=== PATIENT | female | born 1950 | race Caucasian/White ===

== ENCOUNTER 2018-10-05 14:29 | Outpatient (CLI) | payer MEDICARE, BC | END 2018-10-05 23:59 | disposition home or self-care (01) | LOC: VAS 14:29 | PROVIDERS: ATTEND Specialist | DX: R60.0 Localized edema (principal) | CPT/HCPCS: 93971 ==

== ENCOUNTER 2018-12-04 14:00 | Observation (INO) | payer MEDICARE, BC ==
[~2018-12-04] VITALS: Ht 167.6 cm; Wt 79.5 kg
[2018-12-04] MEDS ORDERED: aspirin 81mg tab.chew PO ONE (14:10)
[2018-12-04 14:45] LABS: BASOPHILS % (AUTO) 0.5 % (0-1); EOSINOPHILS # (AUTO) 0.1 X10'3 (0-0.9); EOSINOPHILS % (AUTO) 0.7 % (0-6); HEMATOCRIT 38.7 % (35.0-45.0); HEMOGLOBIN 13.3 g/dl (12.0-16.0); LYMPHOCYTES # (AUTO) 1.8 X10'3 (1.1-4.8); LYMPHOCYTES % (AUTO) 21.9 % (21-51); MEAN CORPUSCULAR HEMOGLOBIN 30.4 PG (27.0-31.0); MEAN CORPUSCULAR HGB CONC 34.3 g/dL (33.0-36.5); MEAN CORPUSCULAR VOLUME 88.6 FL (78-98); MEAN PLATELET VOLUME 7.9 FL (7.4-10.4); MONOCYTES # (AUTO) 0.6 X10'3 (0-0.9); MONOCYTES % (AUTO) 7.7 % (2-12); NEUTROPHILS # (AUTO) 5.8 X10'3 (1.8-7.7); NEUTROPHILS % (AUTO) 69.2 % (42-75); PLATELET COUNT 307 X10'3 (140-440); RED BLOOD COUNT 4.37 X10'6 (4.20-5.60); RED CELL DISTRIBUTION WIDTH 13.8 % (11.5-14.5); WHITE BLOOD COUNT 8.3 X10'3 (4.5-11.0)
[2018-12-04 14:50] LABS: ALANINE AMINOTRANSFERASE 48 U/L (12-78); ALBUMIN 3.7 G/DL (3.4-5.0); ALKALINE PHOSPHATASE 74 IU/L (46-116); ANION GAP 7 (8-16); ASPARTATE AMINO TRANSFERASE 54 U/L (10-37); BILIRUBIN,TOTAL 0.4 MG/DL (0.1-1.0); BLOOD UREA NITROGEN 22 MG/DL (7-18); BUN/CREATININE RATIO 25.3 (6.6-38.0); CALCIUM 9.4 MG/DL (8.5-10.1); CHLORIDE 107 MMOL/L (99-107); CREATININE 0.87 MG/DL (0.40-0.90); GLUCOSE 102 MG/DL (70-104); POTASSIUM 4.1 MMOL/L (3.5-5.1); SODIUM 142 MMOL/L (135-145); TOTAL CARBON DIOXIDE 27.8 MMOL/L (24-32); TOTAL PROTEIN 7.3 G/DL (6.4-8.2); eGFR 65 ML/MIN
[2018-12-04 14:53] LABS: PARTIAL THROMBOPLASTIN TIME 26 SECONDS (22-32)
[2018-12-04 14:59] LABS: MAGNESIUM 2.1 MG/DL (1.5-2.4)
[2018-12-04] MEDS ORDERED: nitroGLYCERIN 1gm ointment UD TP ONE (15:05)
--- NOTE | 2018-12-04 16:21 | NUR ---
SPOKE TO [facility] REGARDING NITRO PASTE; PATIENT DENIES CHEST PAIN: OK TO HOLD AND NON ADMIN NITRO PASTE PRIMARY RN DID NOT TO GIVE NITRO PASTE
--- NOTE | 2018-12-04 16:27 | NUR ---
PATIENT DISCUSSING BOTH HER PAST MEDICAL HISTORY: INCLUDING HX OF AFIB, MITRAL VALVE REPAIR WITH UNSUCCESSFUL MAZE PORCEEDURE. THEN WENT TO [facility] ICU SPECIALIST AND WAS PLACED ON "TIKASON" AND WENT BACK INTO [facility]. PATIENT HAS ALOT OF STRESS IN HER LIFE: HER IS SOMEWHAT SICKLY.
[2018-12-04] MEDS ORDERED: LORazepam 0.5 MG tablet PO PRN (16:45)
[2018-12-04] MEDS ORDERED: NO HOME MEDS (17:05)
[2018-12-04] MEDS ORDERED: potassium Cl 20 mEq SR tablet PO PRN ×2 (17:30)
[2018-12-04] MEDS ORDERED: magnesium hydroxide 30ml (MOM) UD suspension PO PRN (17:30)
[2018-12-04] MEDS ORDERED: acetaminophen 325mg tablet PO PRN ×2 (17:30)
[2018-12-04] MEDS ORDERED: potassium CL 10mEq/100ml bag 100 ML IV PRN ×2 (17:30)
[2018-12-04] MEDS ORDERED: HYDROcodone/acetaminophen 5mg/325mg tablet PO PRN (17:30)
[2018-12-04] MEDS: K and/or MAG REPLACEMENT MC SCH (17:30)
[2018-12-04] MEDS ORDERED: HYDROcodone/acetaminophen 10/325mg tab PO PRN (17:30)
[2018-12-04] MEDS ORDERED: aminophylline 250mg/10ml inj. IV PRN (17:30)
[2018-12-04] MEDS ORDERED: morphine 2 MG/ML inj. syringe IV PRN ×2 (17:30)
[2018-12-04] MEDS ORDERED: ondansetron/PF 4mg/2ml inj IV PRN (17:30)
[2018-12-04] MEDS ORDERED: mag hydrox/Alum hydrox/simeth 30ml oral suspension PO PRN (17:30)
[2018-12-04] MEDS ORDERED: diphenhydrAMINE 25mg capsule PO PRN (17:30)
[2018-12-04] MEDS ORDERED: magnesium Cl slow-release 64mg tablet PO PRN (17:30)
[2018-12-04] MEDS ORDERED: metoprolol tartrate 1mg/ml inj IV PRN (17:30)
[2018-12-04] MEDS ORDERED: magnesium 4gm in 100ml NS 100 ML IV PRN (17:30)
[2018-12-04] MEDS ORDERED: magnesium 2GM in 50ml NS 50 ML IV PRN (17:30)
[2018-12-04] MEDS ORDERED: regadenoson 0.4mg/5ml syringe IV ONE ×2 (17:30→18:05)
[2018-12-04] MEDS ORDERED: nitroGLYCERIN 0.4mg SUBLingual tab SL PRN (17:30)
[2018-12-04] MEDS: normal saline 1000ml 1,000 ML IV SCH ×2 (17:55→20:21)
[2018-12-04 18:06] LABS: HEMOGLOBIN A1C 5.4 % (4.5-6.2)
--- NOTE | 2018-12-04 18:25 | NUR ---
DR CONLEY AT BEDSIDE EVALAUTING PATIENT.
[2018-12-04] MEDS ORDERED: iohexol 350MG/ML 100ml bottle IV ONE (18:48)
[2018-12-04] MEDS: heparin, porcine 5000 units/ml vial SQ SCH (20:00)
[2018-12-04] MEDS: carVEDilol 3.125mg tablet PO SCH (20:19)
[2018-12-04 21:00] VITALS: BP 124/69
--- NOTE | 2018-12-04 21:00 | NUR ---
pt arrived via [place] and ambulated to bed. A&Ox4, oriented to unit. She stated she had full cardiac workup 3 months ago before knee surgery. no chest pain. She stated the Lexiscan was canceled for tomorrow. tele monitor on. no signs of distress noted
[2018-12-04] MEDS ORDERED: pantoprazole 40 MG vial IV ONE (22:30)
--- NOTE | 2018-12-04 22:30 | NUR ---
pt educated on new order of protonix and refused to want this medication
[2018-12-04] MEDS ORDERED: regadenoson 0.4mg/5ml syringe IV PRN (22:35)
[2018-12-05 02:00] VITALS: BP 128/67
[2018-12-05 02:37] LABS: BASOPHILS # (AUTO) 0.1 X10'3 (0-0.2); EOSINOPHILS # (AUTO) 0.2 X10'3 (0-0.9); HEMATOCRIT 37.6 % (35.0-45.0); LYMPHOCYTES % (AUTO) 32.5 % (21-51); MEAN CORPUSCULAR HEMOGLOBIN 30.5 PG (27.0-31.0); MEAN CORPUSCULAR HGB CONC 34.5 g/dL (33.0-36.5); MEAN CORPUSCULAR VOLUME 88.5 FL (78-98); MEAN PLATELET VOLUME 7.8 FL (7.4-10.4); MONOCYTES # (AUTO) 0.6 X10'3 (0-0.9); MONOCYTES % (AUTO) 10.5 % (2-12); NEUTROPHILS # (AUTO) 3.3 X10'3 (1.8-7.7); PLATELET COUNT 277 X10'3 (140-440); RED BLOOD COUNT 4.25 X10'6 (4.20-5.60); RED CELL DISTRIBUTION WIDTH 14.4 % (11.5-14.5); WHITE BLOOD COUNT 6.2 X10'3 (4.5-11.0)
[2018-12-05 02:50] LABS: ALANINE AMINOTRANSFERASE 42 U/L (12-78); ALBUMIN 3.2 G/DL (3.4-5.0); ALKALINE PHOSPHATASE 65 IU/L (46-116); ANION GAP 7 (8-16); ASPARTATE AMINO TRANSFERASE 27 U/L (10-37); BILIRUBIN,TOTAL 0.2 MG/DL (0.1-1.0); BLOOD UREA NITROGEN 20 MG/DL (7-18); CALCIUM 9.3 MG/DL (8.5-10.1); CHLORIDE 110 MMOL/L (99-107); CREATININE 0.77 MG/DL (0.40-0.90); GLUCOSE 104 MG/DL (70-104); POTASSIUM 3.9 MMOL/L (3.5-5.1); SODIUM 144 MMOL/L (135-145); TOTAL CARBON DIOXIDE 26.9 MMOL/L (24-32); TOTAL PROTEIN 6.5 G/DL (6.4-8.2); eGFR 74 ML/MIN
[2018-12-05 03:00] LABS: CHOL/HDL RATIO 4.1 (0.00-4.99); CHOLESTEROL 192 MG/DL (0-200); HDL CHOLESTEROL 47 MG/DL (35-60); LDL CHOLESTEROL 124 MG/DL (50-100); MAGNESIUM 1.9 MG/DL (1.5-2.4); PHOSPHORUS 4.2 MG/DL (2.3-4.5); TRIGLYCERIDES 145 MG/DL (20-135)
[2018-12-05 06:00] VITALS: BP 114/61
[2018-12-05] MEDS: normal saline 1000ml 1,000 ML IV SCH (06:13)
--- NOTE | 2018-12-05 06:22 | NUR ---
Patient in room PCU 3016. I have received report from NOE Carter and NOE Maier and had the opportunity to ask questions and assume patient care. Pt is awake and alert. In good spirits. Pt wants to walk a lap around the unit, and will wait until after shift change. Will continue to monitor and assess.
--- NOTE | 2018-12-05 06:28 | NUR ---
Problems reprioritized. Patient report given, questions answered & plan of care reviewed with Lana RN.
--- NOTE | 2018-12-05 06:30 | NUR ---
Problems reprioritized. Patient report given, questions answered & plan of care reviewed with Eddie rn.
--- NOTE | 2018-12-05 06:33 | NUR ---
Pt is currently walking laps around the unit. She is steady and stable on her feet. The pt is anxious to go home.
[2018-12-05] MEDS ORDERED: pantoprazole 40 MG vial IV SCH (08:00)
[2018-12-05] MEDS: heparin, porcine 5000 units/ml vial SQ SCH (08:00)
[2018-12-05] MEDS ORDERED: aspirin 81mg tablet.DR PO SCH (08:00)
[2018-12-05] MEDS: K and/or MAG REPLACEMENT MC SCH (08:00)
[2018-12-05] MEDS: carVEDilol 3.125mg tablet PO SCH (08:00)
[2018-12-05] MEDS ORDERED: regadenoson 0.4mg/5ml syringe IV PRN (08:00)
--- NOTE | 2018-12-05 09:14 | NUR ---
Sent to Dr Culp PAGER ID: [phone] MESSAGE: RE: Judith Maxwell [phone]. Per Reena, pt is in good health and can be discharged JOSE. -Lana [phone]
[2018-12-05] MEDS ORDERED: ASPI-1071 PO (10:32)
[2018-12-05] MEDS ORDERED: PANT40TA4 PO (10:32)
[2018-12-05] MEDS ORDERED: COR3.125T PO (10:32)
--- NOTE | 2018-12-05 10:50 | NUR ---
Pt states she will make her own f/u appt. She does not want the Rx filled as they are not needed - per pt.
--- NOTE | 2018-12-05 11:08 | NUR ---
Pt discharged. IV and tele monitor removed. All belongings sent home with pt. Left with son accompanied by staff to lobby. Left in private vehicle. No appt or Rx called in per pt request.
== END 2018-12-05 11:09 | disposition home or self-care (01) ==
LOC: ER 14:00 → ED HOLD 17:35 → PCU 3S 20:55
PROVIDERS: ADMIT Family Medicine; ATTEND Family Medicine
DX: R07.89 Other chest pain (principal); I34.1 Nonrheumatic mitral (valve) prolapse; I10 Essential (primary) hypertension; I25.10 Atherosclerotic heart disease of native coronary artery without angina pectoris; I48.0 Paroxysmal atrial fibrillation; K21.9 Gastro-esophageal reflux disease without esophagitis; Z98.51 Tubal ligation status; Z96.651 Presence of right artificial knee joint; Z98.49 Cataract extraction status, unspecified eye; Z87.440 Personal history of urinary (tract) infections; Z79.82 Long term (current) use of aspirin; Z79.899 Other long term (current) drug therapy; Z91.018 Allergy to other foods
CPT/HCPCS: 36415; 71045; 71275; 80053; 80061; 83036; 83735; 83880; 84100; 84443; 84484; 85025; 85379; 85610; 85730; 87081; 93005; 93306; 99284; C9113; G0378; J1644; J2785; J7030; Q9967

== ENCOUNTER 2021-05-07 05:57 | Emergency (ER) | payer MEDICARE, BC ==
[~2021-05-07] VITALS: Ht 167.6 cm; Wt 81.8 kg
[~2021-05-07 05:57] MED LIST: ASPI-1071 PO; COR3.125T PO; PANT40TA54 PO
--- NOTE | 2021-05-07 06:11 | NUR ---
PATIENT'S BOYFRIEND HAS ARRIVED AND IS AT BEDSIDE. HE IS RECOUNTING THE EVENTS OF THIS MORNING TO [facility]U. BOYFRIEND ASKED PATIENT WHAT HER NAME IS AND SHE IS UNABLE TO ANSWER.
--- NOTE | 2021-05-07 06:35 | NUR ---
Note zander in EDM - 05/07/21 at 0636 by ELIF Assumed care of pt. Found while in bedside report that pt's HeliOx tank was empty with a significant amount of medication remaining in nebulizer. RT paged.
--- NOTE | 2021-05-07 06:36 | NUR ---
Previous note charted on incorrect pt
[2021-05-07 07:24] LABS: BASOPHILS % (AUTO) 0.4 % (0-1); EOSINOPHILS % (AUTO) 0.2 % (0-6); HEMATOCRIT 38.9 % (35.0-45.0); HEMOGLOBIN 13.2 g/dl (12.0-16.0); LYMPHOCYTES # (AUTO) 0.8 X10'3 (1.1-4.8); LYMPHOCYTES % (AUTO) 11.4 % (21-51); MEAN CORPUSCULAR HEMOGLOBIN 30.5 PG (27.0-31.0); MEAN CORPUSCULAR HGB CONC 33.8 g/dL (33.0-36.5); MEAN PLATELET VOLUME 7.9 FL (7.4-10.4); MONOCYTES # (AUTO) 0.2 X10'3 (0-0.9); MONOCYTES % (AUTO) 3.4 % (2-12); NEUTROPHILS # (AUTO) 6.1 X10'3 (1.8-7.7); NEUTROPHILS % (AUTO) 84.6 % (42-75); PLATELET COUNT 342 X10'3 (140-440); RED BLOOD COUNT 4.32 X10'6 (4.20-5.60); RED CELL DISTRIBUTION WIDTH 13.8 % (11.5-14.5); WHITE BLOOD COUNT 7.2 X10'3 (4.5-11.0)
--- NOTE | 2021-05-07 07:35 | NUR ---
Attempted to get pt up to the restroom. Pt became hot, flushed, dizzy and acutely confused. Symptoms only present for a short time before resolving.
[2021-05-07 07:40] LABS: LACTIC SEPSIS 2.1 MMOL/L (0.4-2.0)
[2021-05-07 07:46] LABS: ALANINE AMINOTRANSFERASE 39 U/L (12-78); ALBUMIN 3.8 G/DL (3.4-5.0); ALBUMIN/GLOBULIN RATIO 1.1 (1.1-1.5); ALKALINE PHOSPHATASE 77 IU/L (46-116); ANION GAP 11 (8-16); ASPARTATE AMINO TRANSFERASE 26 U/L (10-37); BILIRUBIN,TOTAL 0.3 MG/DL (0.1-1.0); BLOOD UREA NITROGEN 29 MG/DL (7-18); BUN/CREATININE RATIO 37.7 (6.6-38.0); CALCIUM 8.7 MG/DL (8.5-10.1); CHLORIDE 106 MMOL/L (99-107); CREATININE 0.77 MG/DL (0.40-0.90); ETHANOL < 0.010 GM/DL (0.0-0.010); GLUCOSE 130 MG/DL (70-104); POTASSIUM 4.3 MMOL/L (3.5-5.1); SODIUM 142 MMOL/L (135-145); TOTAL CARBON DIOXIDE 24.6 MMOL/L (24-32); TOTAL PROTEIN 7.4 G/DL (6.4-8.2); eGFR 74 ML/MIN
[2021-05-07 08:09] LABS: CLARITY,URINE CLEAR (Clear); COLOR,URINE YELLOW (Yellow); GLUCOSE, URINE NEGATIVE (Neg); KETONES,URINE NEGATIVE (Neg); LEUKOCYTE ESTERASE ,URINE NEGATIVE (Neg); NITRITES, URINE POSITIVE (Neg); OCCULT BLOOD,URINE NEGATIVE (Neg); PH,URINE 5.5 (4.8-8.0); PROTEIN,URINE NEGATIVE (Neg); UROBILINOGEN,URINE 0.2 E.U/dL (0.2-1.0)
[2021-05-07 08:14] LABS: UA COLLECTION TYPE OTHER
[2021-05-07 08:16] LABS: RBC,URINE NONE SEEN /HPF (0-2)
[2021-05-07 08:17] LABS: BACTERIA,URINE 4+ /HPF (Neg); MUCUS STRANDS FEW /LPF (Neg); SQUAMOUS EPITHELIAL CELL,UR MANY /LPF (FEW)
[2021-05-07 08:22] VITALS: BP 144/77
[2021-05-07] MEDS ORDERED: CefTRIAXone 2gm/D5W 50ml BAG 50 ML IV ONE (08:35)
[2021-05-07] MEDS ORDERED: normal saline 1000ML IV soln IVB ONE (08:35)
[2021-05-07 08:46] LABS: URINE AMPHETAMINE SCREEN NEGATIVE (Neg); URINE BARBITUATE SCREEN NEGATIVE (Neg); URINE BENZODIAZEPINES SCREEN NEGATIVE (Neg); URINE CANNABINOID SCREEN NEGATIVE (Neg); URINE COCAINE SCREEN NEGATIVE (Neg); URINE METHADONE SCREEN NEGATIVE (Neg); URINE OPIATE SCREEN NEGATIVE (Neg); URINE PHENCYCLIDINE SCREEN NEGATIVE (Neg)
[2021-05-07] MEDS ORDERED: CEPH-585 PO (09:35)
== END 2021-05-07 09:52 | disposition home or self-care (01) ==
LOC: ER 05:57
DX: R56.9 Unspecified convulsions (principal); R41.0 Disorientation, unspecified; N39.0 Urinary tract infection, site not specified; I48.91 Unspecified atrial fibrillation; Z79.2 Long term (current) use of antibiotics; Z79.899 Other long term (current) drug therapy; Z95.5 Presence of coronary angioplasty implant and graft
CPT/HCPCS: 36415; 70450; 71045; 80053; 80305; 80320; 81001; 82140; 82948; 83605; 83735; 83880; 84484; 85025; 87040; 93005; 96374; 99285; J0696; J7030

== ENCOUNTER 2023-09-27 02:21 | Emergency (ER) | payer MEDICARE ==
[~2023-09-27] VITALS: Ht 167.6 cm; Wt 79.5 kg
[2023-09-27 02:38] LABS: BASOPHILS # (AUTO) 0.1 X10'3 (0-0.2); BASOPHILS % (AUTO) 0.9 % (0-1); EOSINOPHILS # (AUTO) 0.2 X10'3 (0-0.9); HEMATOCRIT 39.9 % (35.0-45.0); HEMOGLOBIN 13.7 g/dl (12.0-16.0); LYMPHOCYTES # (AUTO) 2.9 X10'3 (1.1-4.8); LYMPHOCYTES % (AUTO) 36.5 % (21-51); MEAN CORPUSCULAR HEMOGLOBIN 31.2 PG (27.0-31.0); MEAN CORPUSCULAR HGB CONC 34.3 g/dL (33.0-36.5); MEAN CORPUSCULAR VOLUME 90.9 FL (78-98); MEAN PLATELET VOLUME 7.8 FL (7.4-10.4); MONOCYTES # (AUTO) 0.9 X10'3 (0-0.9); MONOCYTES % (AUTO) 11.9 % (2-12); NEUTROPHILS # (AUTO) 3.8 X10'3 (1.8-7.7); NEUTROPHILS % (AUTO) 47.7 % (42-75); PLATELET COUNT 310 X10'3 (140-440); RED BLOOD COUNT 4.39 X10'6 (4.20-5.60); RED CELL DISTRIBUTION WIDTH 13.4 % (11.5-14.5); WHITE BLOOD COUNT 7.9 X10'3 (4.5-11.0)
[2023-09-27 03:01] LABS: ALBUMIN 3.3 G/DL (3.4-5.0); ANION GAP 6 (8-16); BLOOD UREA NITROGEN 21 MG/DL (7-18); BUN/CREATININE RATIO 22.6 (10.0-20.0); CALCIUM 9.1 MG/DL (8.5-10.1); CHLORIDE 107 MMOL/L (99-107); CREATININE 0.93 MG/DL (0.40-0.90); GLUCOSE 105 MG/DL (70-104); POTASSIUM 4.2 MMOL/L (3.5-5.1); PRO BRAIN NATRIURETIC PEPTIDE 218 PG/ML (0-125); SODIUM 140 MMOL/L (135-145); TOTAL CARBON DIOXIDE 27.2 MMOL/L (24-32); eCRCL 50 ML/MIN; eGFR 59 ML/MIN
[2023-09-27] MEDS: famotidine/PF 10 mg/ml inj IV ONE (04:22)
[2023-09-27 05:25] VITALS: BP 146/62; PULSE 58; RESP 16; TEMP 98.3; O2SAT 96
== END 2023-09-27 05:27 | disposition home or self-care (01) ==
LOC: ER 02:22
DX: R07.9 Chest pain, unspecified (principal); Z79.82 Long term (current) use of aspirin; Z79.899 Other long term (current) drug therapy; Z98.890 Other specified postprocedural states
CPT/HCPCS: 36415; 71045; 80048; 83880; 84484; 85025; 93005; 96374; 99285; J3490

== ENCOUNTER 2024-02-06 10:28 | Outpatient (CLI) | payer MEDICARE ==
[~2024-02-06 10:28] MED LIST changes: +CARV3.1232 PO; -COR3.125T PO
== END 2024-02-06 23:59 | disposition home or self-care (01) ==
LOC: VAS 10:28
PROVIDERS: ATTEND Physician Assistant
DX: I82.441 Acute embolism and thrombosis of right tibial vein (principal); I73.9 Peripheral vascular disease, unspecified
CPT/HCPCS: 93926; 93971

== ENCOUNTER 2025-02-05 06:11 | Day surgery (SDC) | payer MEDICARE, BC ==
[2025-02-04 11:16] LABS: MEAN PLATELET VOLUME 7.7 FL (7.4-10.4); RED CELL DISTRIBUTION WIDTH 13.7 % (11.5-14.5)
[2025-02-04 11:24] LABS: APTT 26 SECONDS (22-32); CREATININE 0.79 MG/DL (0.40-0.90); INR 1.0 INR; TOTAL CARBON DIOXIDE 28.9 MMOL/L (24-32); eGFR 71 ML/MIN
[2025-02-05] VITALS (11 sets, daily range): BP systolic 119–151; BP diastolic 58–75; PULSE 50–58; RESP 12–15; TEMP 98.2; O2SAT 94–98
[~2025-02-05] VITALS: Ht 167.6 cm; Wt 78.9 kg
[~2025-02-05 06:11] MED LIST changes: -CARV3.1232 PO; +COR3.125T PO
--- NOTE | 2025-02-05 06:47 | ELECTROCARDIOGRAPH REPORT ---
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 Kiarra Smith Measurements Intervals Nixa Rate: 58 P: 90 IA: 152 QRS: 12 QRSD: 115 T: 133 QT: 438 QTc: 431 Interpretive Statements Sinus rhythm Nonspecific intraventricular conduction delay Abnormal T, consider ischemia, lateral leads Electronically Signed On 02-06-2025 6:53:[address] Kiarra Smith Please click the below link to view image of tracing.
[2025-02-05] MEDS ORDERED: ROSU20TA98 PO (06:51)
[2025-02-05] MEDS ORDERED: IBUP-2697 PO (06:58)
[2025-02-05] MEDS ORDERED: ASPI-1265 PO (06:58)
[2025-02-05] MEDS ORDERED: iohexol 350 MG/ML 50ML vial IV ONE (07:30)
[2025-02-05] MEDS ORDERED: verapamil 2.5 mg/ml inj IV ONE (07:30)
[2025-02-05] MEDS ORDERED: LIDOcaine 1% (10mg/ml) 2ml vial ONE (07:30)
[2025-02-05] MEDS ORDERED: heparin 1,000unit/ml 10ml vial 10 ML ONE (07:31)
[2025-02-05] MEDS ORDERED: nitroGLYCERIN 500mcg/5mL D5W 5 ML IV ONE (07:31)
[2025-02-05] MEDS ORDERED: fentaNYL/PF 50MCG/1 ML 2ML syringe ONE (08:05)
[2025-02-05] MEDS ORDERED: midazolam 1 mg/ML 2ml injection ONE (08:05)
[2025-02-05 08:47] LABS: ISTAT HGB ART 10.9 g/dl (12.0-16.0); ISTAT Hct ART 32 %PCV (35-45); ISTAT O2 SATURATION ARTERIAL 92 % (95-98); ISTAT SOURCE ART
[2025-02-05] MEDS ORDERED: HYDROcodone/acetaminophen 5mg/325mg tablet PO PRN (09:35)
[2025-02-05] MEDS ORDERED: HYDROcodone/acetaminophen 10/325mg tab PO PRN (09:35)
[2025-02-06 07:31] LABS: ISTAT HGB MIX 10.9 g/dl (12.0-16.0); ISTAT Hct MIX 32 %PCV (35-45); ISTAT O2 SATURATION MIX VENOUS 70 % (60-80); ISTAT SOURCE VEN
--- NOTE | 2025-02-06 20:44 | CARDIOLOGY REPORT ---
DATE OF SERVICE: 02/05/2025 DICTATING PHYSICIAN: ZENA Melgar MD CARDIAC CATHETERIZATION GENDER: Female. AGE: 74 years. HEIGHT: 167 cm. WEIGHT: 78.9 kg. BODY SURFACE AREA: 1.88 m. PRIMARY PHYSICIAN: Iliana Singleton, [facility]. [facility] PLANS INTELLIGENCE OFFICER: ZENA Melgar MD INDICATION: The patient is a 74-year-old female with a history of nonobstructive CAD and mitral valve repair with a [employer] annuloplasty ring by Dr. William Shrestha back on 01/13/2011, history of paroxysmal atrial fibrillation, and hyperlipidemia. The patient has been lately having exertional fatigue and shortness of breath, and underwent myocardial perfusion scan, which showed an irreversible defect. After discussion of risks, benefits and alternative options, the patient underwent coronary angiography. Risks, benefits, and alternative options were discussed. Informed consent was obtained. PROCEDURES DONE: * Ultrasound guided right radial artery visualization. * Right radial artery access. * Right heart catheterization. * Left heart catheterization. * LVG. * Coronary cineangiography. * Conscious sedation of 60 minutes. FINDINGS: HEMODYNAMICS: Aortic systolic 144, diastolic 64, mean 94 mmHg. LVEDP of 17 mmHg. There is no significant gradient across the aortic valve. Right atrial mean is 11 mmHg. RV 36/12 mmHg. Pulmonary capillary wedge pressure of 14 mmHg. Aortic oxygen saturation is 92%. Pulmonary artery oxygen saturation is 70%. Cardiac output thermodilution technique is 5.26 L per minute. Cardiac index of 2.8 liters per minute per meter squared. Aortic valve area was estimated to be 2.41 cm squared. LEFT VENTRICULOGRAM: Overall left ventricular systolic function normal at 65% to 70%. CORONARY CINEANGIOGRAPHY: Left main coronary artery is a large caliber revealed large-caliber vessel arising from the left aortic sinus, has mild luminal irregularities. LAD is a medium-caliber vessel, arising at the bifurcation of the left main coronary artery, coursing through the anterior interventricular groove, ends by wrapping around the apex and mid LAD is intramyocardial with systolic bridging. Diagonal is 2.25 mm caliber-vessel with mild luminal irregularities. Circumflex is tortuous and continues as dominant OM, which is 2 mm in diameter with mild luminal irregularity. OM1 is too small. Right coronary artery is large-caliber, dominant; mildly ectatic vessel arising from the right aortic sinus and courses through the right AV groove, enters the posterior crux by dividing into PDA and posterolateral branches. Mid RCA has about 30% narrowing. The remainder of the RCA shows mild luminal irregularities. IMPRESSION: A 74-year-old female with LV and earlier hemodynamic associated PA systolic pressure of 43 mmHg, overall LVEF of _65%. Status post mitral valve repair in the past with No mitral regurgitation seen. LVEDP of 17 mmHg with no gradient across the aortic valve. Left main normal. LAD and diagonal with mild luminal irregularities. 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 Circumflex marginal with minimal disease. Dominant RCA with 30% narrowing. RECOMMENDATIONS: Continued aggressive coronary risk factor modification, namely low fat, low cholesterol diet, maintaining ideal body weight, keeping LDL less than 70, regular exercise program. The patient recommended evaluation for sleep apnea. Recommend diet, weight loss, and exercise program. Because of increased BMI and history highly Suspicious for sleep apnea and pulmonary hypertension patient has been recommended pulmonary consultation at [facility] Also evaluation of the sleep study. Pulmonary function tests were also ordered. ZENA Melgar MD TID: [id number] RECEIPT: [id number] /[facility] [place]: Dede Vanessa. PMD, [facility] And Dr. Arroyo remotely [facility]
== END 2025-02-05 13:25 | disposition home or self-care (01) ==
LOC: SSTAY O 06:11
PROVIDERS: ATTEND Internal Medicine Cardiovascular Disease
DX: R94.39 Abnormal result of other cardiovascular function study (principal); I25.10 Atherosclerotic heart disease of native coronary artery without angina pectoris; I48.0 Paroxysmal atrial fibrillation; E78.5 Hyperlipidemia, unspecified; E66.3 Overweight; Z86.73 Personal history of transient ischemic attack (TIA), and cerebral infarction without residual deficits; Z79.82 Long term (current) use of aspirin; Z79.899 Other long term (current) drug therapy; Z98.890 Other specified postprocedural states; Z68.28 Body mass index [BMI] 28.0-28.9, adult
CPT/HCPCS: 36415; 80048; 82803; 85014; 85025; 85610; 85730; 93005; 93460; 99152; 99153; A6258; A6402; C1725; C1751; C1769; C1894; J1644; J2003; J2250; J3010; J3490; J7030; Q0163; Q9967; Z7610; 76937